=== PATIENT | female | born 1975 | race African-American/Black ===

== ENCOUNTER 2018-08-27 23:28 | Emergency (ER) | payer OTHER ==
[~2018-08-27] VITALS: Ht 157.5 cm; Wt 89.8 kg
[~2018-08-27 23:28] MED LIST: APAP500; APAP500 PO; BYSTOLIC 5 MG5 M1 PO; COLACE 100 MG100 MG; COLACE100 MG PO; DERMOPLAST SPRA56 ML; FLAGYL500 MG PO; HYDROCODON-ACE1 EAC7 PO; HYDROCORTISONE30 G9; IRON325; LANOLIN56 GM; LISINOPRIL20 MG PO; MACROBID 100 M100 M1 PO; NOHOMEMEDICATIONS; NORCO 5-325 TA1 EACH PO; PRENATAL PO; TUCKS MEDICATE1 EAC1; ZESTRIL10 MG PO; ZPAK PO
[2018-08-28] MEDS ORDERED: ULTRAM 50MG TAB50 MG PO (01:36)
[2018-08-28 01:47] VITALS: BP 170/86
== END 2018-08-28 01:48 | disposition home or self-care (01) ==
LOC: ER 23:28
DX: M72.2 Plantar fascial fibromatosis (principal); M79.675 Pain in left toe(s); M79.674 Pain in right toe(s); I10 Essential (primary) hypertension; Z88.0 Allergy status to penicillin; Z88.1 Allergy status to other antibiotic agents; Z88.2 Allergy status to sulfonamides; Z88.6 Allergy status to analgesic agent; Z88.8 Allergy status to other drugs, medicaments and biological substances; Z91.040 Latex allergy status

== ENCOUNTER 2018-11-18 21:35 | Emergency (ER) | payer OTHER ==
[~2018-11-18] VITALS: Ht 157.5 cm; Wt 89.8 kg
[~2018-11-18 21:35] MED LIST changes: +ULTRAM 50MG TAB50 MG PO
[2018-11-18 23:51] VITALS: BP 159/77
== END 2018-11-18 23:25 | disposition home or self-care (01) ==
LOC: ER 21:35
DX: S70.362A Insect bite (nonvenomous), left thigh, initial encounter (principal); S70.361A Insect bite (nonvenomous), right thigh, initial encounter; I10 Essential (primary) hypertension; Z88.6 Allergy status to analgesic agent; Z88.0 Allergy status to penicillin; Z88.1 Allergy status to other antibiotic agents; Z88.2 Allergy status to sulfonamides; Z91.040 Latex allergy status; W57.XXXA Bitten or stung by nonvenomous insect and other nonvenomous arthropods, initial encounter; Y93.89 Activity, other specified; Y92.89 Other specified places as the place of occurrence of the external cause; Y99.8 Other external cause status